=== PATIENT | female | born 1990 | race Caucasian/White ===

== ENCOUNTER 2023-08-17 11:32 | Outpatient (AMB) | payer OTHER, SELFPAY ==
--- NOTE | 2023-08-17 13:16 | AM.OFFWIN_ITS ---
Intake Vital Signs 08/17/23 13:18 Height 5 ft 1 in Weight 233 lb BMI 44.0 BP 110/80 Blood Pressure Location Rt brachial Position Sitting Pulse 82 Pulse Source Pulse Oximeter Temp 97.2 F Temp Source Temporal Artery Scan Pulse Oximetry (%) 99 Oxygen Delivery Method Room Air Intake Visit Reasons: EST/2 week chest congestion [phone] Intake Note: pt is here to for chest congestion statred 2 weeks ago Patient Tobacco Use Status: Never used Tobacco Allergies No Known Allergies Allergy (Verified 08/17/23 13:18) Do you need a note to return to daycare/school/sports/work: No HPI HPI Comments History of Present Illness Details This is a 32-year-old female who presents to the office today for sick visit. Patient complaining of chest congestion, persistent cough, and some sputum production in the setting of recent viral URI symptoms. Patient states she had developed nasal/sinus congestion, rhinorrhea, headaches, and bilateral otalgia approximately 2 weeks ago. She states the symptoms have persisted and she is now experiencing chest congestion and a cough with some sputum production. She denies any fevers/chills. She denies any shortness of breath. [facility] Social History Patient Tobacco Use Status: Never used Tobacco Review of Systems Const All systems reviewed & are unremarkable except as noted in HPI and below Reports no additional complaints Eyes Reports no additional complaints ENT Reports no additional complaints Card Reports no additional complaints Resp Reports no additional complaints GI Reports no additional complaints Reports no additional complaints Musc Reports no additional complaints Skin/Breast Reports system reviewed and no additional complaints, except as documented Neuro Reports no additional complaints Psych Reports no additional complaints Endo Reports no additional complaints Adams/Lymph Reports no additional complaints Aller/Immun Reports no additional complaints Physical Exam Vital Signs: Last Vital Signs Temp 97.2 F 08/17/23 13:18 Pulse 82 08/17/23 13:18 BP 110/80 08/17/23 13:18 Pulse Ox 99 08/17/23 13:18 Oxygen Delivery Method Room Air 08/17/23 13:18 BMI result Body Mass Index 44.0 Const Other: Vital signs reviewed. Constitutional: Non-toxic appearing. No acute distress. Well-developed and well-nourished. HEENT: Normocephalic and atraumatic. Tympanic membranes without erythema, edema, or bulging bilaterally. External auditory canals without erythema or edema bilaterally. Moist mucous membranes. No pharyngeal erythema or exudates. Skin: Warm and dry. No rashes or lesions noted. Neck: Full and painless range of motion. No cervical lymphadenopathy. Cardio: Regular rate and rhythm. No murmurs, gallops, or rubs. No lower extremity edema. No JVD. Pulmonary: No respiratory distress. No accessory muscle usage. Scant scattered expiratory wheezing. Gastrointestinal: Soft, nontender, and nondistended in all 4 quadrants. Musculoskeletal: Normal range of motion in joints throughout the body. No deformity or other signs of injury. Neuro: Alert and oriented x4. Cranial nerves 2-12 grossly intact. No focal deficits appreciated. Psych: Normal mood and affect. Assessment & Plan Assessment & Plan (1) Acute bronchitis: Code(s): J20.9 - Acute bronchitis, unspecified (2) Viral URI with cough: Code(s): J06.9 - Acute upper respiratory infection, unspecified Plan This is a 32-year-old female planing of chest congestion in the setting of persistent viral URI symptoms x 2 weeks. On physical examination, patient has scant end expiratory wheezing but her physical exam is otherwise benign and her vital signs are stable. History & physical are most consistent with an acute bronchitis in the setting of viral URI. Patient sent home on PO prednisone 40mg dialy x 5 days as well as PO azithromycin 500mg today followed by 250mg daily x 4 days. Recommended over the counter mucolytics such as guaifenisen. Recommended symptomatic management including rest, increased fluids, advil/tylenol for pain/fever, and over the counter throat lozenges/decongestants. Patient advised to follow up here or go to the emergency room for worsening/persistent symptoms. Patient verbalized understanding and is agreeable with the plan. Medications: New prednisone 40 mg (2 x 20 mg) PO DAILY 10 tabs 0RF azithromycin For 250 mg dose pack: take 500 mg today (day 1), then 250 mg for 4 days (days 2-5) PO 6 tabs 0RF Coding Level of Care Code Est Pt Level 3 (05790) Diagnoses Acute bronchitis J20.9 Viral URI with cough J06.9
[2023-08-17 13:18] VITALS: BP 110/80; PULSE 82; TEMP 36.2; O2SAT 99; BMI 44.0
== END 2023-08-17 13:54 | disposition home or self-care (01) ==
PROVIDERS: Visit Provider Physician Assistant Medical
DX: J20.9 Acute bronchitis, unspecified (principal); J06.9 Acute upper respiratory infection, unspecified
CPT/HCPCS: 99213

== ENCOUNTER 2024-12-08 11:09 | Outpatient (AMB) | payer OTHER, SELFPAY ==
--- NOTE | 2024-12-08 11:12 | A.OFFPC_ITS ---
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 Intake Note: patient here for new patient visit Cube Cutter Required: No Is last menstrual period known: Yes Last menstrual period: 11/24/24 Post menopausal: No Patient : No Allergies No Known Allergies Allergy (Verified 12/08/24 11:36) Medication List - Last Reconciled 12/08/24 by Paloma Luis CNP buprenorphine-naloxone 8-2 mg (Suboxone) 2 film buccal DAILY Tobacco use date assessed: 12/08/24 Dental Screening Dental Screen Date: 12/08/24 Did you have a dental visit in the last 12 months?: Yes Did you have a dental problem in the last 6 months where you did not have access to dental care?: No Was dental information given to patient?: Patient has dentist HPI HPI Comments History of Present Illness Details 34-year-old female presents to [facility] care. She was on zoloft for anxiety and depression until 3 years ago. Prior PCP? - Dr. Prakash Last office visit/CPE/labs - 3- 4 years Acute issue(s) - Reports constant low back soreness f or the past 2 years. She denies fall, injury, or trauma. She does not take medication for her symptoms. She has not had imaging done. - Reports soreness to lateral aspect o f the left foot with weight bearing but improves with walking; ongoing for the past 6-7 months. She denies fall, injury, or trauma. She does not take medication for her symptoms. She has not had imaging done. - LISSETTE (opioids). She is on Suboxone aaron y and has been clean for 6-7 years. Past Medical History - Preeclampsia, anxiety, depression, LISSETTE Surgical History - section Family History - Mom: Cardiovascular disease, clotting disorder, alcohol abuse, substance abuse - MGM: Hyperlipidemia Social History - Nonsmoker. Does not vape. Does not dri nk alcohol. Denies recreational drug use - She does not make healthy dietary zarate dinh. Exercises routinely. She is a light sleeper - She has five children Health maintenance - She does not recall ever having an eye exam. Referred to Ophthalmology for routine eye care - Last dental visit was a month ago. - Last Tdap was in 2021 - Has not been vaccinated for the flu ; she will get the flu vaccine another day - Last pap smear test was in 2019: gabrielle scruggs Referred to [facility] and gate builder for a pap smear test [facility], [facility] Medical History (Updated 12/08/24 @ 14:28 by Yamileth Grijalva MA) History of pre-eclampsia Depression Anxiety Surgical History (Updated 12/08/24 @ 11:28 by Yamileth Grijalva MA) H/O: Family History Mother Alcohol abuse Substance abuse FH: mental illness Cardiovascular disease Clotting disorder Sister Substance abuse FH: mental illness Maternal Grandmother High cholesterol Social History Housing: Apartment Patient Tobacco Use Status: Never used Tobacco e-Cigarette/Vaping Use: Never Used Second Hand Smoke Exposure: No service: No Current occupational status: employed 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 1. Little interest or pleasure in doing things: several days 2. Feeling down, depressed, or hopeless: not at all 3. Trouble falling or staying asleep, or sleeping too much: not at all 4. Feeling tired or having little energy: several days 5. Poor appetite or overeating: more than half the days 6. Feeling bad about yourself - or that you are a failure or have let yourself or your family down: not at all 7. Trouble concentrating on things, such as reading the newspaper or watching television: not at all 8. Moving or speaking so slowly that other people could have noticed. Or the opposite - being so fidgety or restless that you have been moving around a lot more than usual: not at all 9. Thoughts that you would be better off or of hurting yourself in some way: not at all Total score: 4 Depression Screening Interpretation: Negative Depression Screening Done: Yes 08328 - PHQ-9 Billing: Yes Source: Developed by Drs. Anthony Mazariegos, Barbara Ulrich, Lui Sanabria and colleagues, with an educational leslie from [employer]. Thrive Questionnaire Date Thrive assessed: 12/08/24 I am a: Patient What is your living situation today?: I have a steady place to live Within the past 12 months, did the food you bought not last and you didn't have the money to get more?: Sometimes True Within the past 12 months, did you worry whether your food would run out before you got money to buy more?: Sometimes True Do you have trouble paying for medicines?: No Do you have trouble getting transportation to medical appointments?: No Do you have trouble paying your heating and electricity bill?: Yes Do you have trouble taking care of your child, family member or friend?: No Do you have trouble with day-to-day activities such as bathing, preparing meals, shopping, managing finances, etc.?: No Are you currently unemployed and looking for a job?: No Are you interested in more education?: Yes Please select the resources that you would like help with: None Currently or been in a relationship where the following occur: No concerns reported THRIVE Score: 3 AUDIT C Alcohol Use Questionnaire (AUDIT-C) 1. How often do you have a drink containing alcohol?: Never Total Score: 0 JED-7 AMB Questionnaire JED-7 Date JED - 7 assessed: 12/08/24 Feeling nervous, anxious, or on edge: 1 = Several days Not being able to stop or control worryin = Several days Worrying too much about different things: 1 = Several days Trouble relaxin = Several days Being so restless that it is hard to sit still: 1 = Several days Becoming easily annoyed or irritable: 1 = Several days Feeling afraid as if something awful might happen: 1 = Several days Total JED-7 score (0-4 normal; 5-9 mild; 10-14 moderate; 15-21 severe): 7 Source: Developed by Drs. Anthony Mazariegos, Lui Sousa and colleagues, with an educational leslie from [employer]. JED-7 Assessment Billing JED-7 Assessment Tool: JED-7 Assessment 43933 Review of Systems Const Details: Denies chills, Denies fatigue, Denies fever(s), Denies headache(s) and Denies weakness HEENT Denies change in vision, Denies dizziness, Denies headache(s), Denies hearing loss, Denies nasal congestion, Denies sinus pain, Denies sinus pressure and Denies sore throat Card Denies chest pain, Denies lightheadedness, Denies dyspnea and Denies other (palpitations) Resp Denies cough, Denies dyspnea and Denies wheezing GI Denies abdominal pain, Denies melena, Denies hematochezia, Denies change in bowel habits, Denies dyspepsia and Denies nausea Denies hematuria and Denies dysuria Musc Reports as per HPI Skin/Breast Denies rash, Denies unusual bruising and Denies wounds Neuro Denies abnormal gait, Denies dizziness, Denies headache(s), Denies memory loss, Denies numbness, Denies Sensory deficit (Neuro), Denies tingling and Denies weakness Psych Denies anxiety, Denies depression and Denies memory loss Endo Denies cold intolerance, Denies fatigue, Denies heat intolerance, Denies polydipsia and Denies polyuria Adams/Lymph Denies easy bleeding and Denies easy bruising Aller/Immun Denies wheezing Physical exam (Primary Care) Vital Signs: Last Vital Signs Temp 97.8 F 12/08/24 11:42 Pulse 61 12/08/24 11:42 Resp 16 12/08/24 11:42 BP 127/66 12/08/24 11:42 Pulse Ox 99 12/08/24 11:42 Oxygen Delivery Method Room Air 12/08/24 11:42 BMI result Body Mass Index 47.3 Tobacco/Smoking Status: Tobacco use Status Tobacco use date assessed 12/08/24 12/08/24 11:29 Patient Tobacco Use Status Never used Tobacco 12/08/24 11:14 e-Cigarette/Vaping Use Never Used 12/08/24 11:29 PHQ-9: PHQ-9 Score PHQ-9: Total score 4 12/08/24 14:01 Depression Screening Interpretation: Negative Thrive Assessment: Date of Thrive Assessment Date Thrive assessed 12/08/24 12/08/24 11:14 Currently or been in a relationship where the following occur: No concerns reported Const Other: General: no acute distress, well developed, alert and awake Nutritional Appearance: well nourished Orientation/consciousness: patient oriented x3 [facility] Head: Yes normocephalic and Yes atraumatic Ears: hearing grossly normal bilaterally and TM's normal bilaterally General nose exam: Normal external nose present and Normal nares present Mouth: Normal oral and palatal mucosa present and moist mucous membranes Teeth and gingiva: dentition normal Throat: Yes oropharynx normal Eyes Pupils: Equal, round and reactive pupils present and Pupil accommodation reflex normal EOM: EOMs intact bilaterally Neck Neck: Yes normal visual inspection, Yes no lymphadenopathy and Yes trachea midline Thyroid: Thyroid normal Carotids: no bruits Lymphatic: no lymphadenopathy noted Chest Chest palpation & inspection: normal inspection of the chest Resp Effort & Inspection: normal respiratory effort Auscultation: clear to auscultation bilaterally Cardio Rate: regular rate Rhythm: regular rhythm Heart sounds: S1 normal heart sound present, S2 normal heart sound present, no gallops, no murmurs and no rubs Bruits: no abdominal aortic bruits and no carotid bruits GI Palpation (GI): No Abdominal aortic bruit present, Soft to palpation, nontender, No hepatosplenomegaly present and No Rebound tenderness present Auscultation: normal bowel sounds General: Yes no CVA tenderness Back/Spine/Pelvis Back: no CVA tenderness Cervical Spine: cervical ROM normal and No Cervical spine tenderness Thoracic/Lumbar Spine: thoraco-lumbar ROM normal, No pain with thoraco-lumbar ROM, No thoracic spinal tenderness and positive lumbar spinal tenderness Skin General: warm and dry. Normal skin color. Normal skin turgor Lesions: no lesions Rashes: no rashes Trauma: no lacerations or abrasions Wounds: no wounds Nails: normal Neuro General: patient oriented x3, gait normal and CN's II-XI intact bilaterally Cranial nerves: Yes Equal, round and reactive pupils present Cognition (Neuro): normal cognition Gait exam (Neuro): Normal gait present Motor exam (neuro): 5/5 motor strength present throughout Sensory Exam: No Sensory deficit (Neuro) Deep tendon reflexes (DTR's): Right patellar reflex intensity grade: 2+ and Left patellar reflex intensity grade: 2+ Extrem General: Yes normal to inspection, No edema and No calf tenderness Psych Appearance: grossly normal Affect: normal affect Attitude: cooperative Thought process: Normal thought process present Coding Level of Care Code New Pt Level 4 (78914) New Pt Prev Care 18-39yr(90034 Diagnoses Normal physical examination, routine Z00.00 Anxiety and depression F41.9; F32.A Chronic low back pain M54.50; G89.29 Chronic pain in left foot M79.672; G89.29 Pap smear for cervical cancer screening Z12.4 Eye exam, routine Z01.00 Morbid obesity with BMI of 45.0-49.9, adult E66.01; Z68.42 History of substance use disorder Z87.898 Laboratory tests ordered as part of a complete physical exam (CPE) Z00.00 Additional Codes JED-7 Assessment Billing - JED-7 Assessment Tool: JED-7 Assessment 84675 ([id number]) PHQ-9 - 40220 - PHQ-9 Billing: Yes ([id number]) Assessment & Plan Assessment & Plan (1) Normal physical examination, routine: Code(s): Z00.00 - Encounter for general adult medical examination without abnormal findings Category: Medical Plan: No significant functional limitation noted. Advised to perform lab work and follow-up in 2-3 weeks for telehealth visit for labs review. Return sooner with symptoms or concerns. Verbalized understanding and agreed with treatment plan. (2) Anxiety and depression: Code(s): F41.9 - Anxiety disorder, unspecified; F32.A - Depression, unspecified Category: Medical Plan: She was on sertraline until 3 years ago. Reports controlled anxiety and depressive symptoms. PHQ-9 score is normal. JED-7 score revealed mild anxiety. Routine exercise encouraged. Follow-up with symptoms or concerns. Verbalized understanding and agreed with the plan. (3) Chronic low back pain: Code(s): M54.50 - Low back pain, unspecified; G89.29 - Other chronic pain Category: Medical Plan: Reports constant low back soreness for the past 2 years. No fall, injury, or trauma. Mild tenderness to palpation of the lumbar spine. No overt injury or trauma noted. Tylenol as prescribed. Warm/cool compresses encouraged. X-ray of the lumbar spine ordered. Will review results and make changes as needed. Follow-up with worsening or new symptoms. Verbalized understanding and agreed with treatment plan. (4) Chronic pain in left foot: Code(s): M79.672 - Pain in left foot; G89.29 - Other chronic pain Category: Medical Plan: Soreness to lateral aspect of the left foot with weight bearing but improves with walking; ongoing for the past 6-7 months. No fall, injury, or trauma. No edema, erythema, or overt injury or trauma noted. Advised to take Tylenol as prescribed. Warm/cool compresses encouraged. X-ray ordered. Will review results and make changes as needed. Follow-up with worsening or new symptoms. Verbalized understanding and agreed with treatment plan. (5) Pap smear for cervical cancer screening: Code(s): Z12.4 - Encounter for screening for malignant neoplasm of cervix Category: Medical Plan: Last pap smear test was in 2019: normal. Referred to [facility] lip and gate builder for a pap smear test. (6) Eye exam, routine: Code(s): Z01.00 - Encounter for examination of eyes and vision without abnormal findings Category: Medical Plan: She does not recall having an eye exam. Referred to Ophthalmology for routine eye care. (7) Morbid obesity with BMI of 45.0-49.9, adult: Code(s): E66.01 - Morbid (severe) obesity due to excess calories; Z68.42 - Body mass index [BMI] 45.0-49.9, adult Category: Medical Plan: She currently weighs 250 lb, BMI is 47.3. She has not been making healthy dietary choices and does not exercise. Healthy diet and routine exercise encouraged. Referred to weight management clinic as requested. Follow-up with symptoms or concerns. Verbalized understanding and agreed with the plan. (8) History of substance use disorder: Code(s): Z87.898 - Personal history of other specified conditions Category: Medical Plan: Reports history of opioid use disorder and has been clean for the past 6-7 y ears. She is on Suboxone daily. (9) Laboratory tests ordered as part of a complete physical exam (CPE): Code(s): Z00.00 - Encounter for general adult medical examination without abnormal findings Category: Medical Plan: Fasting labs ordered as part of a complete physical exam. Advised to fast for at least 10 hours before getting labs drawn. May drink water Verbalized understanding and agreed with treatment plan. Orders: Orders Complete Blood Count Auto Diff Today Z00.00 - Encounter for general adult medical examination without abnormal findings Lipid Panel Today Z00.00 - Encounter for general adult medical examination without abnormal findings TSH reflex Free T4 Today Z00.00 - Encounter for general adult medical examination without abnormal findings UA CC w/rflx Micro + Cult Today Z00.00 - Encounter for general adult medical examination without abnormal findings XR foot LT 2V Today G89.29 - Other chronic pain, M79.672 - Pain in left foot XR lumbar spine 2-3V Today G89.29 - Other chronic pain, M54.50 - Low back pain, unspecified Comprehensive [place]. Panel Fast Today Z00.00 - Encounter for general adult medical examination without abnormal findings Microalbumin, Random (w Creat) Today Z00.00 - Encounter for general adult medical examination without abnormal findings Vitamin D 25-OH Total Today Z00.00 - Encounter for general adult medical examination without abnormal findings Referrals Ophthalmology Referral Z01.00 - Encounter for examination of eyes and vision without abnormal findings [employer] LE[employer]ER Referral Z12.4 - Encounter for screening for malignant neoplasm of cervix Medical Weight Management Referral E66.01 - Morbid (severe) obesity due to excess calories, Z68.42 - Body mass index [BMI] 45.0-49.9, adult Medications: New acetaminophen ER (Tylenol Arthritis Pain) 650 mg PO Q8H PRN 90 tabs 2RF pain
[2024-12-08 11:42] VITALS: BP 127/66; PULSE 61; RESP 16; TEMP 36.6; O2SAT 99; BMI 47.3
== END 2024-12-08 12:06 | disposition home or self-care (01) ==
LOC: HO.HMCFM 11:10
PROVIDERS: PCP Nurse Practitioner Family; Visit Provider Nurse Practitioner Family
DX: Z00.00 Encounter for general adult medical examination without abnormal findings (principal); F41.9 Anxiety disorder, unspecified; E66.01 Morbid (severe) obesity due to excess calories; Z68.42 Body mass index [BMI] 45.0-49.9, adult; M54.50 Low back pain, unspecified; F32.A Depression, unspecified; G89.29 Other chronic pain; M79.672 Pain in left foot; Z87.898 Personal history of other specified conditions

== ENCOUNTER → 2024-12-08 11:09 | Outpatient (BNVA) | payer OTHER, SELFPAY | PROVIDERS: PCP Nurse Practitioner Family; Visit Provider Nurse Practitioner Family | DX: Z00.01 Encounter for general adult medical examination with abnormal findings (principal); F41.9 Anxiety disorder, unspecified; F32.A Depression, unspecified; M54.50 Low back pain, unspecified; G89.29 Other chronic pain; M79.672 Pain in left foot; E66.01 Morbid (severe) obesity due to excess calories; Z68.42 Body mass index [BMI] 45.0-49.9, adult; Z87.898 Personal history of other specified conditions | CPT/HCPCS: 96127; 99202; 99385 ==

== ENCOUNTER 2024-12-09 08:59 | Outpatient (REF) | payer OTHER, SELFPAY ==
[2024-12-09 11:17] LABS: MANUAL DIFF FLAG NO
[2024-12-09 11:30] LABS: Basophils Percent Auto 0.5 % (0-2); Eosinophils Absolute Auto 0.2 X10*3/uL (0.0-0.4); Eosinophils Percent Auto 2.7 % (0-4); Hematocrit 36.1 % (37.0-47.0); Hemoglobin 11.6 g/dl (12.0-16.0); Imm Gran Abs Auto 0.02 X10*3/uL (0.00-0.03); Imm Gran Pct Auto 0.3 % (0.0-0.4); Lymphocytes Absolute Auto 1.3 X10*3/uL (1.2-4.9); Lymphocytes Percent Auto 22.9 % (20-40); Mean Corpuscular HGB Conc 32.1 g/dl (31.0-35.0); Mean Corpuscular Hemoglobin 27.3 pg (27.0-33.0); Mean Corpuscular Volume 84.9 fL (80.0-98.0); Mean Platelet Volume 9.9 fL (9.4-12.3); Monocytes Absolute Auto 0.2 X10*3/uL (0.1-1.2); Monocytes Percent Auto 3.8 % (2-11); Neutrophils Absolute Auto 4.1 x10*3/uL (2.0-8.3); Neutrophils Percent Auto 69.8 % (45-73); Platelet Count 219 X10*3/uL (160-400); Red Blood Count 4.25 X10*6/uL (4.20-5.50); Red Cell Distribution Width 13.7 % (11.0-16.0); White Blood Count 5.8 X10*3/uL (4.8-10.8)
[2024-12-09 11:32] LABS: Appearance Urine Clear; Color Urine Yellow; Glucose Urine UA Negative (Negative); Leukocyte Esterase Urine Negative (Negative); Nitrite Urine Negative (Negative); PH 5.5 (5.0-9.0); Specific Gravity - Urine >= 1.030 (1.005-1.025); Urine Blood Negative (Negative); Urine Ketones Trace mg/dL (Negative); Urine Protein Negative (Neg-Trace)
[2024-12-09 11:58] LABS: Creatinine Urine 177.65 mg/dL; Microalbum/Creatinine Ratio Ur 9.5 ug/mg cr (<30)
[2024-12-09 12:07] LABS: Alanine Aminotransferase 49 U/L (0-31); Alkaline Phosphatase 87 U/L (39-117); Anion Gap 9 (12-20); Aspartate Amino Transferase 28 U/L (5-31); Bilirubin Total 0.4 mg/dL (0.0-1.0); Blood Urea Nitrogen 12 mg/dL (9-16); Carbon Dioxide 27 mmol/L (22-29); Chloride 107 mmol/L (96-108); Cholesterol 188 mg/dL (<200); Estimated Glomerular Filt Rate > 60; Glucose Fasting 110 mg/dL (60-99); HDL Cholesterol 45 mg/dL (>40); LDL Cholesterol Calculated 130 mg/dL (<100); Potassium 3.9 mmol/L (3.3-5.1); Sodium 139 mmol/L (135-145); TSH reflex Free T4 1.76 uIU/mL (0.32-4.0); Total Protein 6.8 g/dL (6.5-8.0); Triglycerides 67 mg/dL (<150); Vitamin D 25-OH Total 29.3 ng/mL (>30)
== END 2024-12-09 09:00 | disposition home or self-care (01) ==
LOC: HO.WFDLDS 08:59
PROVIDERS: Visit Provider Nurse Practitioner Family
DX: Z00.00 Encounter for general adult medical examination without abnormal findings (principal)
CPT/HCPCS: 36415; 80053; 80061; 81003; 82043; 82306; 82570; 84443; 85025

== ENCOUNTER 2024-12-12 09:35 | Outpatient (REF) | payer OTHER, SELFPAY ==
--- NOTE | ~2024-12-12 | XR_ITS ---
EXAMINATION: XR LUMBOSACRAL SPINE CLINICAL INFORMATION: M54.50 - Low back pain, unspecified COMPARISON: None available. TECHNIQUE: Three views of the lumbosacral spine. FINDINGS: Hypertrophy of the facet joints at L5-S1. Marginal osteophyte formation and endplate sclerosis and decreased intervertebral disc height at L5-S1. No gross malalignment. No acute cortical disruption. No lytic or blastic lesions. XR/XR lumbar spine 2-3V IMPRESSION: Spondylosis at L5-S1. Electronically signed by: Devyn Harris MD 12/12/2024 11:33 AM EDT
--- NOTE | ~2024-12-12 | XR_ITS ---
EXAMINATION: XR FOOT 1-2 VIEWS LEFT HISTORY: M79.672 - Pain in left foot COMPARISON: There are no prior studies available for comparison. FINDINGS: Three views of the left foot are submitted. Osseous mineralization is normal. There is no fracture or dislocation. The joint spaces are preserved. There is a moderate-sized plantar calcaneal spur. The soft tissues are unremarkable. XR/XR foot LT 2V IMPRESSION: Lateral plantar calcaneal spur. Otherwise unremarkable examination of the left foot. Electronically signed by: Anthony Santacruz MD 12/12/2024 02:42 PM EDT
== END 2024-12-12 09:36 | disposition home or self-care (01) ==
LOC: HO.XRAY 09:35
PROVIDERS: PCP Family Medicine; Visit Provider Nurse Practitioner Family
DX: M54.50 Low back pain, unspecified (principal); G89.29 Other chronic pain; M79.672 Pain in left foot
CPT/HCPCS: 72100; 73620

== ENCOUNTER → 2024-12-12 09:44 | Outpatient (BNV) | payer OTHER, SELFPAY | PROVIDERS: PCP Family Medicine; Visit Provider Radiology Diagnostic Radiology | DX: M47.817 Spondylosis without myelopathy or radiculopathy, lumbosacral region (principal); M77.32 Calcaneal spur, left foot | CPT/HCPCS: 72100; 73620 ==

== ENCOUNTER 2024-12-23 12:37 | Outpatient (AMB) | payer OTHER, SELFPAY ==
--- NOTE | 2024-12-23 12:33 | A.OFFPC_ITS ---
Intake Visit Reasons: Telehealth 2-3 wks labs review Nail Kegger Required: No Is last menstrual period known: Yes Last menstrual period: 12/23/24 Post menopausal: No Patient : No Allergies No Known Allergies Allergy (Verified 12/23/24 12:34) Tobacco use date assessed: 12/23/24 Dental Screening Dental Screen Date: 12/23/24 Did you have a dental visit in the last 12 months?: Yes Did you have a dental problem in the last 6 months where you did not have access to dental care?: No Was dental information given to patient?: Patient has dentist HPI HPI Comments History of Present Illness Details 34[facility] recent lab and imaging results. No acute symptoms at this time. [facility] Medical History (Updated 12/23/24 @ 13:24 by Paloma Luis CNP) History of pre-eclampsia Depression Anxiety Surgical History (Updated 12/08/24 @ 11:28 by Yamileth Grijalva MA) H/O: Family History Mother Alcohol abuse Substance abuse FH: mental illness Cardiovascular disease Clotting disorder Sister Substance abuse FH: mental illness Maternal Grandmother High cholesterol Social History Housing: Apartment Patient Tobacco Use Status: Never used Tobacco e-Cigarette/Vaping Use: Never Used Second Hand Smoke Exposure: No Patient : No service: No Current occupational status: employed 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 Current occupational exposures/hazards: No Cognitive needs: No Hearing needs: No Vision needs: No Female Reproductive History Menstrual Date of last menstrual period: 12/23/24 Questionnaire Thrive Questionnaire Date Thrive assessed: 12/08/24 I am a: Patient What is your living situation today?: I have a steady place to live Within the past 12 months, did the food you bought not last and you didn't have the money to get more?: Sometimes True Within the past 12 months, did you worry whether your food would run out before you got money to buy more?: Sometimes True Do you have trouble paying for medicines?: No Do you have trouble getting transportation to medical appointments?: No Do you have trouble paying your heating and electricity bill?: Yes Do you have trouble taking care of your child, family member or friend?: No Do you have trouble with day-to-day activities such as bathing, preparing meals, shopping, managing finances, etc.?: No Are you currently unemployed and looking for a job?: No Are you interested in more education?: Yes Please select the resources that you would like help with: None Currently or been in a relationship where the following occur: No concerns reported THRIVE Score: 3 JED-7 AMB Questionnaire JED-7 Date JED - 7 assessed: 12/08/24 Source: Developed by Drs. Anthony Mazariegos, Barbara Ulrich, Lui Sanabria and colleagues, with an educational leslie from [employer]. Review of Systems Const Details: Denies chills, Denies fatigue, Denies fever(s), Denies headache(s) and Denies weakness Cardiac Denies chest pain, Denies claudication, Denies leg edema, Denies lightheadedness, Denies palpitations, Denies dyspnea, Denies dyspnea on exertion, Denies orthopnea and Denies other (Loss of consciousness) Resp Denies cough, Denies excessive phlegm production, Denies dyspnea, Denies dyspnea on exertion, Denies snoring and Denies wheezing Physical exam (Primary Care) Tobacco/Smoking Status: Tobacco use Status Tobacco use date assessed 12/23/24 12/23/24 12:35 Patient Tobacco Use Status Never used Tobacco 12/23/24 12:35 e-Cigarette/Vaping Use Never Used 12/23/24 12:35 Thrive Assessment: Date of Thrive Assessment Date Thrive assessed 12/08/24 12/23/24 12:35 Currently or been in a relationship where the following occur: No concerns reported Const Other: Patient is alert and oriented x3. Telehealth Telehealth Telehealth Platform: Telephone Location of provider rendering services: practice address Location of patient: address on file Patient Identification confirmed using: Name, : Yes Telehealth method: voice only Patient verbally consented to treatment: Yes Patient verbally consented to billing insurance company: Yes Patient informed of any privacy concerns related to visit: Yes Coding Level of Care Code Tele Est Pt Level 3 (52015) Diagnoses Normocytic anemia D64.9 Elevated fasting glucose R73.01 Elevated ALT measurement R74.01 Elevated LDL cholesterol level E78.00 Vitamin D deficiency E55.9 Chronic low back pain M54.50; G89.29 Calcaneal spur, left foot M77.32 Time Spent (min) 20 Assessment & Plan Assessment & Plan (1) Normocytic anemia: Code(s): D64.9 - Anemia, unspecified Category: Medical Plan: Recent H&H a slightly low, 11.6 and 36.7 respectively, MCV is normal. Will check iron profile, vitamin B12, and folate level and make changes as needed. Advised to get blood work done. Verbalized understanding and agreed with the plan. (2) Elevated fasting glucose: Code(s): R73.01 - Impaired fasting glucose Category: Medical Plan: Recent fasting glucose is slightly elevated, 110. Will recheck fasting glucose. Advised to fast for 10-12 hours, may drink water, and perform fasting glucose blood work. Verbalized understanding and agreed with the plan. (3) Elevated ALT measurement: Code(s): R74.01 - Elevation of levels of liver transaminase levels Category: Medical Plan: Recent ALT level is slightly elevated, 49. Fatty liver disease is likely. Healthy diet, including low-fat and routine exercise encouraged. Advised to fast for 10-12 hours, may drink water, and perform lipid panel blood work 2-3 days before next visit. Follow-up for telehealth visit 2 months. Return sooner with symptoms or concerns. Verbalized understanding and agreed with treatment plan. (4) Elevated LDL cholesterol level: Code(s): E78.00 - Pure hypercholesterolemia, unspecified Category: Medical Plan: Recent LDL level is slightly elevated, 130. Advised to limit foods high in saturated fat and avoid foods high in trans fat. Routine exercise encouraged. Before fasting lipid panel blood work 2-3 days before next visit. Verbalized understanding and agreed with the plan. (5) Vitamin D deficiency: Code(s): E55.9 - Vitamin D deficiency, unspecified Category: Medical Plan: Recent vitamin-D level is slightly low, 29.3. Vitamin D3 1000 units daily ordered; advised to take as prescribed. Will recheck vitamin-D level in 2 months. Verbalized understanding and agreed with the plan. (6) Chronic low back pain: Code(s): M54.50 - Low back pain, unspecified; G89.29 - Other chronic pain Category: Medical Plan: Recent x-ray of the lumbar spine revealed Spondylosis at L5-S1. May take Tylenol ibuprofen for pain or discomfort. Warm/cool compresses encouraged. Weight management encouraged to really weight on the spine. Follow-up as needed. Verbalized understanding and agreed with the treatment plan. (7) Calcaneal spur, left foot: Code(s): M77.32 - Calcaneal spur, left foot Category: Medical Plan: Recent x-ray of the left foods revealed lateral plantar calcaneal spur. Otherwise unremarkable examination of of the left foot. May take Tylenol ibuprofen for pain or discomfort. Warm/cool compresses encouraged. Referred to [facility]. Follow-up as needed. Verbalized understanding and agreed with the plan. Orders: Orders Lipid Panel 2 Months E78.00 - Pure hypercholesterolemia, unspecified Liver Panel 2 Months R74.01 - Elevation of levels of liver transaminase levels Vitamin D 25-OH Total 2 Months E55.9 - Vitamin D deficiency, unspecified IRON PROFILE Today D64.9 - Anemia, unspecified Glucose Fasting Today R73.01 - Impaired fasting glucose Vitamin B12 and Folate Today D64.9 - Anemia, unspecified Referrals Orthopedics Referral M77.32 - Calcaneal spur, left foot Medications: New cholecalciferol (vitamin D3) 25 mcg PO DAILY 90 days 90 tabs 1RF
== END 2024-12-23 13:27 | disposition home or self-care (01) ==
LOC: HO.HMCFM 12:37
PROVIDERS: PCP Family Medicine; Visit Provider Nurse Practitioner Family
DX: D64.9 Anemia, unspecified (principal); R73.01 Impaired fasting glucose; R74.01 Elevation of levels of liver transaminase levels; E78.00 Pure hypercholesterolemia, unspecified; E55.9 Vitamin D deficiency, unspecified; M54.50 Low back pain, unspecified; G89.29 Other chronic pain; M77.32 Calcaneal spur, left foot

== ENCOUNTER → 2024-12-23 12:37 | Outpatient (BNVA) | payer OTHER, SELFPAY | PROVIDERS: PCP Family Medicine; Visit Provider Nurse Practitioner Family | DX: Z13.89 Encounter for screening for other disorder (principal) ==

== ENCOUNTER 2024-12-31 08:51 | Outpatient (REF) | payer OTHER, SELFPAY ==
[2024-12-31 12:25] LABS: Alanine Aminotransferase 25 U/L (0-31); Albumin Level 4.1 g/dL (3.5-5.0); Alkaline Phosphatase 82 U/L (39-117); Aspartate Amino Transferase 23 U/L (5-31); Bilirubin Direct 0.1 mg/dL (0.0-0.5); Bilirubin Total 0.3 mg/dL (0.0-1.0); Cholesterol 194 mg/dL (<200); Glucose Fasting 102 mg/dL (60-99); HDL Cholesterol 43 mg/dL (>40); Iron 44 mcg/dL (30-160); LDL Cholesterol Calculated 137 mg/dL (<100); Percent Iron Saturation 16 % (15-50); Total Iron Binding Capacity 280 mcg/dL (228-428); Total Protein 6.7 g/dL (6.5-8.0); Triglycerides 70 mg/dL (<150); Unsaturated Iron Binding 236 ug/dL; Vitamin D 25-OH Total 35.3 ng/mL (>30)
[2024-12-31 12:39] LABS: Folate 14.3 ng/mL (> or = 4.0); Vitamin B12 654 pg/mL (200-900)
== END 2024-12-31 08:52 | disposition home or self-care (01) ==
LOC: HO.WFDLDS 08:51
PROVIDERS: Visit Provider Nurse Practitioner Family
DX: R73.01 Impaired fasting glucose (principal)
CPT/HCPCS: 36415; 80061; 80076; 82306; 82607; 82746; 82947; 83540

== ENCOUNTER 2025-02-23 08:48 | Outpatient (AMB) | payer OTHER, SELFPAY ==
--- NOTE | 2025-02-23 08:46 | MHC.PC.OV ---
Intake Visit Reasons: 2mos elevaed LDL,elevated ALT, vit D def Intake Note: patient here for 2 month follow up on elevated ALT, elevated LDL and vit D def Special Certificate Dictator Required: No Is last menstrual period known: Yes Last menstrual period: 02/20/25 Post menopausal: No Patient : No Allergies No Known Allergies Allergy (Verified 02/23/25 08:46) Tobacco use date assessed: 02/23/25 Dental Screening Dental Screen Date: 02/23/25 Did you have a dental visit in the last 12 months?: Yes Did you have a dental problem in the last 6 months where you did not have access to dental care?: No Was dental information given to patient?: Patient has dentist HPI HPI Comments History of Present Illness Details 34-year-old female presents for a telehealth visit for review of recent lab results. She admits to taking her medications as prescribed without adverse reactions. She offers no complaints and denies acute symptoms at this time. [facility] Medical History (Updated 12/23/24 @ 13:24 by Paloma Luis CNP) History of pre-eclampsia Depression Anxiety Surgical History (Updated 12/08/24 @ 11:28 by Yamileth Grijalva MA) H/O: Family History Mother Alcohol abuse Substance abuse FH: mental illness Cardiovascular disease Clotting disorder Sister Substance abuse FH: mental illness Maternal Grandmother High cholesterol Social History Housing: Apartment Patient Tobacco Use Status: Never used Tobacco e-Cigarette/Vaping Use: Never Used Second Hand Smoke Exposure: No Patient : No service: No Current occupational status: employed 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 Current occupational exposures/hazards: No Cognitive needs: No Hearing needs: No Vision needs: No Female Reproductive History Menstrual Date of last menstrual period: 02/20/25 Questionnaire Thrive Questionnaire Date Thrive assessed: 12/08/24 I am a: Patient What is your living situation today?: I have a steady place to live Within the past 12 months, did the food you bought not last and you didn't have the money to get more?: Sometimes True Within the past 12 months, did you worry whether your food would run out before you got money to buy more?: Sometimes True Do you have trouble paying for medicines?: No Do you have trouble getting transportation to medical appointments?: No Do you have trouble paying your heating and electricity bill?: Yes Do you have trouble taking care of your child, family member or friend?: No Do you have trouble with day-to-day activities such as bathing, preparing meals, shopping, managing finances, etc.?: No Are you currently unemployed and looking for a job?: No Are you interested in more education?: Yes Please select the resources that you would like help with: None Currently or been in a relationship where the following occur: No concerns reported THRIVE Score: 3 AUDIT C Alcohol Use Questionnaire (AUDIT-C) 3. How often do you have six or more drinks on one occasion?: Never Total Score: 0 JED-7 AMB Questionnaire JED-7 Date JED - 7 assessed: 12/08/24 Source: Developed by Drs. Anthony Mazariegos, Barbara Ulrich, Lui Sanabria and colleagues, with an educational leslie from [employer]. Review of Systems Const Details: Denies chills, Denies fatigue, Denies fever(s), Denies headache(s) and Denies weakness Cardiac Denies chest pain, Denies claudication, Denies leg edema, Denies lightheadedness, Denies palpitations, Denies dyspnea, Denies dyspnea on exertion, Denies orthopnea and Denies other (Loss of consciousness) Resp Denies cough, Denies excessive phlegm production, Denies dyspnea, Denies dyspnea on exertion, Denies snoring and Denies wheezing Physical exam (Primary Care) Tobacco/Smoking Status: Tobacco use Status Tobacco use date assessed 02/23/25 02/23/25 08:48 Patient Tobacco Use Status Never used Tobacco 02/23/25 08:48 e-Cigarette/Vaping Use Never Used 02/23/25 08:48 Thrive Assessment: Date of Thrive Assessment Date Thrive assessed 12/08/24 02/23/25 08:48 Currently or been in a relationship where the following occur: No concerns reported Const Other: Patient is alert and oriented x3 Telehealth Telehealth Telehealth Platform: Telephone Location of provider rendering services: practice address Location of patient: address on file Patient Identification confirmed using: Name, : Yes Telehealth method: voice only Patient verbally consented to treatment: Yes Patient verbally consented to billing insurance company: Yes Patient informed of any privacy concerns related to visit: Yes Coding Level of Care Code Tele New Pt Level 4 (77508) Diagnoses Elevated LDL cholesterol level E78.00 Elevated ALT measurement R74.01 Elevated fasting glucose R73.01 Vitamin D deficiency E55.9 Time Spent (min) 15 Assessment & Plan Assessment & Plan (1) Elevated LDL cholesterol level: Code(s): E78.00 - Pure hypercholesterolemia, unspecified Category: Medical Plan: Recent LDL level is elevated, 137 from 130. Triglycerides, total cholesterol, and HDL levels are normal. Advised to limit foods high in saturated fat and avoid foods high in trans fat. Routine exercise/weight loss encouraged. Will monitor lipid panel levels annually or if present with related symptoms or concerns. Verbalized understanding and agreed with the plan. (2) Elevated ALT measurement: Code(s): R74.01 - Elevation of levels of liver transaminase levels Category: Medical Plan: Recent ALT level was normal. Will check liver panel annually or if presents with related symptoms or concerns. Weight loss encouraged. Verbalized understanding and agreed with the plan. (3) Elevated fasting glucose: Code(s): R73.01 - Impaired fasting glucose Category: Medical Plan: Recent fasting glucose is slightly elevated, 102 form 110. Will check A1c and make changes as needed. Healthy diet and routine exercise encouraged. Verbalized understanding and agreed with the plan. (4) Vitamin D deficiency: Code(s): E55.9 - Vitamin D deficiency, unspecified Category: Medical Plan: Recent vitamin-D level is normal, 35.3 from 29.3. Continue current treatment regimen. Will continue to monitor. Verbalized understanding and agreed with the plan. Orders: Orders Hemoglobin A1c Today R73.01 - Impaired fasting glucose
--- OUTSIDE RECORDS SUMMARY | 2025-02-23 09:12 | XMS_ITS | Data Portability ---
Author Organization [facility], [facility] [place] [facility] Address [address] [place] [address] Care Team Providers Care Manager Freelance Name Role Phone PALOMA LUIS Primary Care Provider Assessment Encounter Date Assessment Date Assessment LastModified by Organization Details LastModified Time 01/06/2025 01/06/2025 ICD-10: Left plantar fasciitis, gastrocnemius contracture, cavus foot, obesity CHIEF COMPLAINT: Left plantar heel and foot pain HISTORY OF PRESENT ILLNESS: Deirdre is a very pleasant 34-year-old woman seen today as a new patient who complains of longstanding left plantar heel and foot pain that has developed over the past 7-8 months. This began after she wore a pair of dress shoes to a . She denies any known injury. She has gained weight and is wondering if this is contributory. She is referred by her primary care provider. Her pain level is 2/10. She describes start up pain that improves with more walking. 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 She also has low back pain due to lumbar spine degenerative disc disease. She has tried Tylenol and otherwise has had no formal treatment to date. She comes in today wearing Crocs. PFMSH and ROS has been reviewed, updated and is located in the patient? s chart. PHYSICAL EXAMINATION: General: 5'1 , 250 lbs, healthy appearing, in no acute distress. Psych: Alert and oriented x 3, normal mood. Skin: Intact without ulceration or lesion, normal turgor. Lungs: Respirations unlabored. Cardiac: Heart rate regular, normal peripheral pulses. Musculoskeletal: Gait is antalgic on the affected side. On standing examination, the patient has mild cavus alignment. On seated examination, the patient has tenderness about the plantarmedial heel over the plantar fascial origin. The plantar fascia is intact with normal contour. There is no tenderness with squeeze of the calcaneus. The patient has a gastrocnemius contracture. There is a negative Tinel? s sign over the tarsal tunnel and plantar sensation is normal. The patient is distally neurovascularly intact. Her ankle is stable and non-tender with normal peroneal tendon strength. IMAGING: Five-view weightbearing radiographs of the left ankle and foot were ordered, obtained, and reviewed by me today at [facility], demonstrating a small plantar calcaneal exostosis, cavus alignment, no evidence of fracture, arthritis or coalition. IMPRESSION: Left plantar fasciitis, gastrocnemius contracture, cavus foot, obesity PLAN: I had a long discussion with the patient regarding the nature of plantar fasciitis. I explained that the vast majority of case improve with appropriate conservative management, including regular stretching exercises, orthotics, physical therapy, and anti-inflammatorie s. I discussed the fact that a tight gastrocnemius muscle can cause or worsen plantar fasciitis by resulting in more strain on the plantar fascia. I would recommend maximizing conservative treatment. The patient should begin calf and hamstrings stretching exercises 10 times per day for a minute at a time and these stretches should be done throughout the day. These stretching exercises were demonstrated to the patient today and a handout was also provided. I also provided a plantar fasciitis handout. I have also prescribed a course of Mobic to be taken daily with dinner. I have also recommended physical therapy and an OTC orthotic. The patient will follow-up in 8 weeks. We discussed the role of a single cortisone injection at the plantar fascial origin. I anticipate that as gastrocnemius flexibility improves and she loses weight, her plantar fasciitis will resolve. If conservative measures fail, consideration can be given to surgery in the form of gastrocnemius recession. All questions were answered. The patient is ambulatory, but has weakness and/or instability of their lower extremity which requires stabilization from this semi-rigid/rigid orthosis to improve their function. Verbal and written instructions for the use and application of this item were given. Patient was instructed that should the brace result in increased pain, decreased sensation, increased swelling or an overall worsening of their medical condition, to please contact our office immediately. Please cc: Paloma Luis NP [email or web address] Not available 01/06/2025 11:31:40 Plan of Treatment Reminders Order Date Submit Date Provider Last Modified By Organization Details Last Modified Time Details Appointments RECHECK 15 2024 04:00P M Holly Ayala PA-C Not available Not available Not available Lab None recorded. Referral physical therapist referral - Dx: Left plantar fasciitis 2024 025 [email or web address] Not available 01/13/2025 12:28:29 Procedures None recorded. Surgeries None recorded. Imaging XR, ankle + foot - room 108 new L 3v foot 2v ankle wb 2024 025 [email or web address] [facility] [address], [facility] [address], [place], [address], 01/13/2025 12:28:29 Medication Orders meloxicam 15 mg tablet [email or web address] [id number], [address] [place], [address], 01/06/2025 11:46:55 Patient TargetsNo targets recorded. Patient InstructionsNo instructions recorded. Reason for Referral Physical Therapist Referral for Plantar fasciitis of left foot Dx: Left plantar fasciitis Referring Physician: Roberto Briones, Orthopedic Surgery, Encounter Date: 01/06/2025 Results Created Date Observation Date Name Description Value Unit Range Abnormal Flag Note LastModifiedBy Organization Detail LastModifiedTime 01/07/20 25 01/06/2025 XR, ankle + foot http:/ [email or web address] ?Encry pted=s hAaTro YD8dLq bEUv6g %2BXZw aYqtaq 0bqfl% 2Fg9IQ a4ajBk vP9nXo QUaueC m3YtLR FvZlgJ JJ8mAn HZtai3 6s0460 AC0Kla n2MVKO nKiQtr MwF INTERFACE [facility] [address], [place], [address], 01/06/2025 11:08:16 01/07/20 25 01/06/2025 XR, ankle + foot http:/ [email or web address] ?Encry pted=s hAaTro YD8dLq bEUv6g %2BXZw aYqtaq 0bqfl% 2Fg9IQ a4ajBk vP9nXo QUaueC m3YtLR FvZlgJ JJ8mAn HZtai3 4w9466 AC0Kla n2MVKO nKiQtr MwF INTERFACE [facility] [address], [place], [address], 01/06/2025 11:08:18 Result Notes Documentation Provider Name and Address Organization Details Recorded Time Xr, Ankle + Foot : [email or web address]? Encrypted=kuMhRnsSD7eLscF Uv6g%7JXBbqGarkx2fbkf%2Fg 1DAp7ubUacH3zBhRUkpzYm7Fg AJNlPuvEGZ6lIoEJzeu04h644 5MB4Pamq2YSWFtUsTunZkW Not Available [facility] 01/06/2025 11:08: 17 Xr, Ankle + Foot : [email or web address] Encrypted=zeMsDxdNU8tNxaA Uv6g%2RCYsoMindc0nwso%2Fg 2PJa3bcYrlS0aNkICjsdUa4Bk GEDoWwzOSV9oNgJRfop31s046 0QF8Twnm2JQJMmKlLniDmO Not Available [facility] 01/06/2025 11:08: 18 Problems Name Problem SNOMED Code Status Onset Date Resolution Date Notes Provider Name and Address Organization Details Recorded Time Tightness of left gastrocnemi us muscle 5886897259625 9106 Active 2024 Roberto Briones MD [address] [facility] [address], [facility] [place], [address], [facility] 11:31:08 Acquired cavus deformity of left foot [id number] 107 Active 2024 Roberto Briones MD [address], [place], [address] , [facility] 11:31:12 Problem Notes None recorded. Medical Equipment None Reported. Medications Name Sig Start Date Stop Date Status Note LastModified by Organization Details LastModified Time ibuprofen 800 mg tablet TAKE 1 TABLET BY MOUTH EVERY 8 HOURS NEEDED FOR PAIN active Not Available Not Available No t Available meloxicam 15 mg tablet TAKE 1 TABLET BY MOUTH EVERY DAY FOR 30 DAYS active Not Available Not Available No t Available prednisone 20 mg tablet TAKE 2 TABLETS BY MOUTH EVERY DAY FOR 5 DAYS active Not Available Not Available No t Available acetaminophe n ER 650 mg tablet,exten ded release TAKE 1 TABLET BY MOUTH EVERY 8 HOURS NEEDED FOR PAIN active Not Available Not Available No t Available amoxicillin 250 mg capsule TAKE 1 CAPSULE BY MOUTH EVERY 8 HOURS UNTIL FINISHED active Not Available Not Available No t Available cholecalcife rol (vitamin D3) 25 mcg (1,000 unit) capsule TAKE 1 CAPSULE BY MOUTH EVERY DAY active Not Available Not Available No t Available Suboxone 8 mg-2 mg sublingual film USE 2+1/2 FILMS UNDER TONGUE SUBLINGUALL Y DAILY active Not Available Not Available No t Available Vitals None Recorded Social History None recorded. Functional Status None recorded. Mental Status None recorded. Family History Nothing Reported. Medical History No medical history recorded. Gynecological HistoryNo gynecological history recorded. Obstetrics History GPAL:G 0 P 0 0 0 0 Past Encounters Encounter ID Performer Location Encounter Start Date Encounter Closed Date Diagnosis/Indication Diagnosis SNOMED-CT Code Diagnosis ICD10 Code Diagnosis Note [id number] [facility] [address] [address] [place] [address] 01/06/2025 10:44:53 01/13/2025 12:28:29 Pain in left foot [id number] 67939 M79.672 Plantar fa sciitis of left foot [id number] 5646329 M72.2 Tightness of left gastrocnemius muscle 1348468110 3566440 M62.89 Acquired c avus deformity of left foot [id number] 076447 M21.6X2 Health Concerns Section Related Observation LastModified by Organization Detai ls LastModified Time None Recorded Concern Status LastModified by Organization Details LastModified Time None Recorded Advance Directives Directive None Recorded Payers Insurance Date Sequence Insurance Name Policy Number Policy Larson Covered Member ID Larson Member ID Guarantor Name 02/09/2025 1 [facility] NET PLAN (MEDICAID HMO) NELY Segundo [id number] Deirdre Segundo OBGyguy Episode No OBEpisode recorded.
== END 2025-02-23 12:40 | disposition home or self-care (01) ==
LOC: HO.HMCFM 08:49
PROVIDERS: PCP Nurse Practitioner Family; Visit Provider Nurse Practitioner Family
DX: E78.00 Pure hypercholesterolemia, unspecified (principal); R74.01 Elevation of levels of liver transaminase levels; R73.01 Impaired fasting glucose; E55.9 Vitamin D deficiency, unspecified

== ENCOUNTER → 2025-02-23 08:48 | Outpatient (BNVA) | payer OTHER, SELFPAY | PROVIDERS: PCP Nurse Practitioner Family; Visit Provider Nurse Practitioner Family | DX: R74.01 Elevation of levels of liver transaminase levels (principal); E55.9 Vitamin D deficiency, unspecified; R73.01 Impaired fasting glucose; E78.00 Pure hypercholesterolemia, unspecified | CPT/HCPCS: 99212 ==

== ENCOUNTER 2025-03-19 09:30 | Outpatient (REF) | payer OTHER, SELFPAY ==
[2025-03-19 12:11] LABS: Hemoglobin A1C 106.5356 umol/L; Total Hemoglobin (HGBA1C) 2956.0829 umol/L
== END 2025-03-19 09:31 | disposition home or self-care (01) ==
LOC: HO.WFDLDS 09:30
PROVIDERS: Visit Provider Nurse Practitioner Family
DX: R73.01 Impaired fasting glucose (principal)
CPT/HCPCS: 36415; 83036

== ENCOUNTER 2025-03-23 09:55 | Outpatient (AMB) | payer OTHER, SELFPAY ==
--- NOTE | 2025-03-23 09:57 | MHC.PC.OV ---
Vital Signs 03/23/25 10:02 Height 5 ft 1 in Weight 255 lb BMI 48.2 BP 122/67 Blood Pressure Location Rt brachial Position Sitting Respiration 16 Pulse 68 Pulse Source Pulse Oximeter Temp 98.1 F Temp Source Oral Pulse Oximetry (%) 97 Oxygen Delivery Method Room Air Intake Visit Reasons: Righ hand fingers swollen Intake Note: patient here c/o right hand fingers swollen Conflict Resolution Professional Required: No Is last menstrual period known: Yes Last menstrual period: 03/23/25 Post menopausal: No Patient : No Allergies meloxicam Allergy (Intermediate, Verified 03/23/25 10:20) Itching Medication List - Last Reconciled 03/23/25 by Paloma Luis CNP acetaminophen ER (Tylenol Arthritis Pain) 650 mg PO Q8H PRN buprenorphine-naloxone 8-2 mg (Suboxone) 2 film buccal DAILY cholecalciferol (vitamin D3) 25 mcg PO DAILY 90 days Tobacco use date assessed: 03/23/25 Dental Screening Dental Screen Date: 03/23/25 Did you have a dental visit in the last 12 months?: Yes Did you have a dental problem in the last 6 months where you did not have access to dental care?: No Was dental information given to patient?: Patient has dentist HPI HPI Comments History of Present Illness Details 34-year-old female presents with complaints of pain, redness, and swelling of the right middle finger. She experienced the pain for 2 weeks but resolved over the weekend. She notes that some erythema and edema still present. Denies injury or trauma. Denies tingling, numbness, loss of sensation. No loss of mobility. [facility] Medical History (Updated 03/23/25 @ 10:27 by Paloma Luis CNP) History of pre-eclampsia Depression Anxiety Surgical History (Updated 12/08/24 @ 11:28 by Yamileth Grijalva MA) H/O: Family History Mother Alcohol abuse Substance abuse FH: mental illness Cardiovascular disease Clotting disorder Sister Substance abuse FH: mental illness Maternal Grandmother High cholesterol Social History Housing: Apartment Patient Tobacco Use Status: Never used Tobacco e-Cigarette/Vaping Use: Never Used Second Hand Smoke Exposure: No Patient : No service: No Current occupational status: employed 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 Current occupational exposures/hazards: No Cognitive needs: No Hearing needs: No Vision needs: No Female Reproductive History Menstrual Date of last menstrual period: 03/23/25 Questionnaire Thrive Questionnaire Date Thrive assessed: 12/08/24 I am a: Patient What is your living situation today?: I have a steady place to live Within the past 12 months, did the food you bought not last and you didn't have the money to get more?: Sometimes True Within the past 12 months, did you worry whether your food would run out before you got money to buy more?: Sometimes True Do you have trouble paying for medicines?: No Do you have trouble getting transportation to medical appointments?: No Do you have trouble paying your heating and electricity bill?: Yes Do you have trouble taking care of your child, family member or friend?: No Do you have trouble with day-to-day activities such as bathing, preparing meals, shopping, managing finances, etc.?: No Are you currently unemployed and looking for a job?: No Are you interested in more education?: Yes Please select the resources that you would like help with: None Currently or been in a relationship where the following occur: No concerns reported THRIVE Score: 3 JED-7 AMB Questionnaire JED-7 Date JED - 7 assessed: 12/08/24 Source: Developed by Drs. Anthony Mazariegos, Barbara Ulrich, Lui Sanabria and colleagues, with an educational leslie from [employer]. Review of Systems Const Details: Const Denies chills, Denies fatigue, Denies fever(s), Denies headache(s) and Denies weakness ENT Denies dizziness and Denies headache(s) Card Denies chest pain, Denies lightheadedness, Denies dyspnea and Denies other (Palpitations) Resp Denies cough, Denies dyspnea, Denies wheezing and Denies other ( shortness of breath) GI Denies abdominal pain, Denies melena, Denies hematochezia, Denies change in bowel habits, Denies dyspepsia and Denies nausea Denies hematuria and Denies dysuria Musc Reports as per HPI Skin/Breast Denies rash, Denies unusual bruising and Denies wounds Neuro Denies abnormal gait, Denies dizziness, Denies headache(s), Denies memory loss, Denies numbness, Denies Sensory deficit (Neuro), Denies tingling and Denies weakness Psych Denies anxiety, Denies depression, Denies memory loss Endo Denies cold intolerance, Denies fatigue, Denies heat intolerance, Denies polydipsia and Denies polyuria Aller/Immun Denies wheezing Physical exam (Primary Care) Vital Signs: Last Vital Signs Temp 98.1 F 03/23/25 10:02 Pulse 68 03/23/25 10:02 Resp 16 03/23/25 10:02 BP 122/67 03/23/25 10:02 Pulse Ox 97 03/23/25 10:02 Oxygen Delivery Method Room Air 03/23/25 10:02 BMI result Body Mass Index 48.2 Tobacco/Smoking Status: Tobacco use Status Tobacco use date assessed 03/23/25 03/23/25 10:05 Patient Tobacco Use Status Never used Tobacco 03/23/25 09:59 e-Cigarette/Vaping Use Never Used 03/23/25 09:59 Thrive Assessment: Date of Thrive Assessment Date Thrive assessed 12/08/24 03/23/25 09:59 Currently or been in a relationship where the following occur: No concerns reported Const Other: General: no acute distress and well developed Nutritional Appearance: well nourished Orientation/consciousness: patient oriented x3 HENMT Head: Yes normocephalic and Yes atraumatic Eyes General: appearance normal, both eyes and all related structures Pupils: Equal, round and reactive pupils present EOM: EOMs intact bilaterally Resp Effort & Inspection: normal respiratory effort Auscultation: clear to auscultation bilaterally Cardio Rate: regular rate Rhythm: regular rhythm Heart sounds: S1 normal heart sound present, S2 normal heart sound present, no gallops, no murmurs and no rubs GI Palpation (GI): No Abdominal aortic bruit present, Soft to palpation, nontender, No hepatosplenomegaly present and No Rebound tenderness present Auscultation: normal bowel sounds General: Yes no CVA tenderness Back/Spine/Pelvis Back: no CVA tenderness Cervical Spine: cervical ROM normal and No Cervical spine tenderness Thoracic/Lumbar Spine: thoraco-lumbar ROM normal, No pain with thoraco-lumbar ROM, No thoracic spinal tenderness and No lumbar spinal tenderness Extrem General: Yes normal to inspection, and No calf tenderness. Slight erythema and edema to the DIP joint of the left middle finger, normal CMS Skin General: warm and dry. Normal skin color. Normal skin turgor Neuro General: patient oriented x3, gait normal and no focal neuro deficit Cranial nerves: Yes Equal, round and reactive pupils present Cognition (Neuro): normal cognition Gait exam (Neuro): Normal gait present Sensory Exam: No Sensory deficit (Neuro) Psych Appearance: grossly normal Affect: normal affect Attitude: cooperative Thought process: Normal thought process present Coding Level of Care Code Est Pt Level 4 (01901) Diagnoses Swelling of finger of right hand M79.89 Assessment & Plan Assessment & Plan (1) Swelling of finger of right hand: Code(s): M79.89 - Other specified soft tissue disorders Category: Medical Plan: 34-year-old female presents with complaints of pain, redness, and swelling of the right middle finger. She experienced the pain for 2 weeks but resolved over the weekend. She notes that some erythema and edema still present. Denies injury or trauma. Denies tingling, numbness, loss of sensation. No loss of mobility. Slight erythema and edema to the DIP joint of the right middle finger, normal CMS. Gout is likely. Will check uric acid level. Cool compresses encouraged. May take Tylenol ibuprofen for pain or discomfort. Follow-up for an extended physical exam next year. Return sooner with worsening or new signs and symptoms. Verbalized understanding and agreed with the plan.
[2025-03-23 10:02] VITALS: BP 122/67; PULSE 68; RESP 16; TEMP 36.7; O2SAT 97; BMI 48.2
== END 2025-03-23 10:29 | disposition home or self-care (01) ==
LOC: HO.HMCFM 09:56
PROVIDERS: PCP Nurse Practitioner Family; Visit Provider Nurse Practitioner Family
DX: M79.89 Other specified soft tissue disorders (principal)

== ENCOUNTER → 2025-03-23 09:55 | Outpatient (BNVA) | payer OTHER, SELFPAY | PROVIDERS: PCP Nurse Practitioner Family; Visit Provider Nurse Practitioner Family | DX: M79.89 Other specified soft tissue disorders (principal) | CPT/HCPCS: 99212 ==

== ENCOUNTER 2025-03-24 09:18 | Outpatient (REF) | payer OTHER, SELFPAY ==
[2025-03-24 12:03] LABS: Uric Acid 3.8 mg/dL (2.4-5.7)
== END 2025-03-24 09:19 | disposition home or self-care (01) ==
LOC: HO.WFDLDS 09:18
PROVIDERS: Visit Provider Nurse Practitioner Family
DX: M79.89 Other specified soft tissue disorders (principal)
CPT/HCPCS: 36415; 84550